=== PATIENT | female | born 1970 | race Caucasian/White ===

== ENCOUNTER → 2017-02-02 | Outpatient (CLI) | payer OTHER ==
--- NOTE | 2017-02-02 11:26 | XR ---
EXAM TYPE: LUMBAR SPINE X RAY SERIES COMPARISON: NONE HISTORY: Pain TECHNIQUE: 3 views are submitted. FINDINGS: Alignment is anatomic. The pedicles are intact. The transverse processes are intact. There is no s pondylolysis or spondylolisthesis. Surgical clips in the gallbladder fossa. Hypertrophic changes at virtually all levels with multilevel mild degenerative disc disease. There is a 2 mm retrolisthesis L2 on L3 of indeterminate age. No evidence of compression deformity. Facet arthropathy at L4-5 and L5-S1. IMPRESSION: 1. Multilevel mild degenerative disc disease. If there is concern for disc herniation recommend MRI.
== END | disposition home or self-care (01) ==
LOC: RADXRMAIN 10:55
PROVIDERS: ATTEND Emergency Medicine
DX: M51.36 Other intervertebral disc degeneration, lumbar region (principal)
CPT/HCPCS: 72100

== ENCOUNTER → 2017-03-29 | Outpatient (CLI) | payer BC ==
--- NOTE | 2017-03-29 19:04 | US ---
EXAMINATION TYPE: US thyroid st tissue head/neck DATE OF EXAM: 03/29/2017 6:54 PM COMPARISON: Prior 2011 CLINICAL HISTORY: Miriam thyroiditis . Patient takes thyroid medication GLAND SIZE: Right Lobe: 3.8 x 1.3 x 1.1 cm Overall Parenchyma: heterogenous Left Lobe: 3.7 x 1.0 x 1.0 cm Overall Parenchyma: heterogeneous Isthmus Thickness: 0.3 cm NODULES RIGHT: # of nodules measured on right: 0 LEFT: # of nodules measured on left: 0 ISTHMUS: # of nodules measured in the isthmus: 0 Bilateral neck scanned, no evidence of lymphadenopathy. Very heterogeneous gland bilaterally IMPRESSION: Negative exam. No focal thyroid abnormality seen.
== END | disposition home or self-care (01) ==
LOC: RADUSMAIN 17:59
PROVIDERS: ATTEND Family Medicine
DX: E06.3 Autoimmune thyroiditis (principal)
CPT/HCPCS: 76536

== ENCOUNTER → 2019-04-26 | Outpatient (CLI) | payer BC | END | disposition home or self-care (01) | LOC: LABPAT 11:06 | PROVIDERS: ATTEND Anesthesiology | DX: Z01.812 Encounter for preprocedural laboratory examination (principal); Z01.818 Encounter for other preprocedural examination | CPT/HCPCS: 36415; 84132; 93005 ==

== ENCOUNTER 2019-04-30 07:54 | Day surgery (SDC) | payer BC ==
[2019-04-25 09:48] VITALS: BMI 45.3
[~2019-04-30 07:54] MED LIST: DEXAMETHASONE SOD PHOSPHATE 4 MG/ML 1 ML VIAL IV ONE; FAMOTIDINE 20 MG/2 ML VIAL IV ONE; HYDROmorphone 0.5 MG/0.5 ML SYRINGE IVP PRN; LACTATED RINGERS 1,000 ML IV SCH; LIDOCAINE 1% 20 ML VIAL (10MG/ML) FOR IV START INTRADERMA PRN; ONDANSETRON 4 MG/2 ML VIAL IVP ONE
[2019-04-30 08:47] LABS: Glucose,Whole Blood 101 mg/dL (75-99)
[2019-04-30] MEDS ORDERED: SUCCINYLCHOLINE CHLORIDE 100 MG/5 ML SYR IV ONE (09:38)
[2019-04-30] MEDS ORDERED: fentaNYL (PF) 50 MCG/ML 2 ML AMP ONE (09:38)
[2019-04-30] MEDS ORDERED: HYDROmorphone (PF) 1 MG/ML ONE (09:38)
[2019-04-30] MEDS ORDERED: ROCURONIUM BROMIDE 10 MG/ML 10 ML VIAL IV ONE (09:38)
[2019-04-30] MEDS ORDERED: GLYCOPYRROLATE 0.2 MG/ML 2 ML VIAL ONE (09:38)
[2019-04-30] MEDS ORDERED: PROPOFOL 10 MG/ML 20 ML VIAL IV ONE (09:38)
[2019-04-30] MEDS ORDERED: LIDOCAINE 1% INJ 10MG/ML (20 ML MDV) ONE (09:38)
[2019-04-30] MEDS ORDERED: DEXAMETHASONE SOD PHOS (MDV) 100 MG/10 ML VIAL ONE (09:38)
[2019-04-30] MEDS ORDERED: MIDAZOLAM 2 MG/2 ML VIAL ONE (09:38)
--- NOTE | 2019-04-30 10:39 | P.OP ---
Date of Procedure: 04/30/19 Preoperative Diagnosis: Chronic tonsillitis Postoperative Diagnosis: Same Procedure(s) Performed: Adenotonsillectomy Anesthesia: GLENN Surgeon: Erick Olguin Estimated Blood Loss (ml): 3 Pathology: other (Bilateral tonsils) Condition: stable Disposition: PACU Indications for Procedure: The 48-year-old white female who has recurrent/chronic tonsillitis as well as postnasal drainage Operative Findings: Tonsils +3 bilaterally with considerable scarring in the tonsillar fossa bilaterally the adenoids were mildly enlarged and therefore were vaporized with suction cautery Description of Procedure: The patient was brought in the operative suite and placed in a supine position. Patient underwent induction of general anesthesia with oral endotracheal intubation without difficulty. The patient was prepped and draped in usual aseptic fashion. The McIvor mouth gag was placed. Soft palate was palpated and no submucous cleft was noted. Red Saul catheters placed through the right nasal cavity and pulled through the oropharynx for soft palate retraction. Nasopharynx examined mirror exam the adenoids were vaporized with suction cautery. Hemostasis was noted to be good and the catheter was removed. The left tonsil was grasped with a curved Allis clamp and dissected from tonsillar fossa in a superior to inferior direction using both blunt and electrocautery dissection. Hemostasis was gained with suction cautery. Once hemostasis was obtained attention was turned to the right where the right tonsil was removed exactly as the left had been. Once this tonsils removed hemostasis was gained with suction cautery. Once hemostasis was obtained and remained good in both tonsillar fossa the patient was suctioned in oral gastric fashion and the McIvor mouth gag was removed. The patient was allowed to emerge from general anesthesia having tolerated procedure well was extubated in the operating suite and transferred to postop recovery area in satisfactory condition.
[2019-04-30] MEDS ORDERED: LACTATED RINGERS 1,000 ML IV ONE (10:40)
[2019-04-30] MEDS ORDERED: ONDANSETRON 4 MG/2 ML VIAL IVP ONE (11:01)
[2019-04-30 11:04] VITALS: TEMP 97.8
[2019-04-30] MEDS ORDERED: diphenhydrAMINE 50 MG/ML 1 ML VIAL IVP ONE (11:37)
[2019-04-30 11:56] VITALS: RESP 16
[2019-04-30 12:59] VITALS: BP 135/80; PULSE 99
== END 2019-04-30 13:22 | disposition home or self-care (01) ==
LOC: OR 07:54
PROVIDERS: ATTEND Otolaryngology
DX: J35.03 Chronic tonsillitis and adenoiditis (principal); J03.91 Acute recurrent tonsillitis, unspecified; I10 Essential (primary) hypertension; K21.9 Gastro-esophageal reflux disease without esophagitis; R60.0 Localized edema; E06.3 Autoimmune thyroiditis; Z79.890 Hormone replacement therapy; Z79.899 Other long term (current) drug therapy; Z79.2 Long term (current) use of antibiotics; Z90.49 Acquired absence of other specified parts of digestive tract; Z88.1 Allergy status to other antibiotic agents; Z82.61 Family history of arthritis; Z80.3 Family history of malignant neoplasm of breast; Z83.79 Family history of other diseases of the digestive system
CPT/HCPCS: 42821; 88304; 81025; J2250; J1200; J1100 ×2; J2405; J0690; J2001; J3010; J1170; J0330; J2704

== ENCOUNTER → 2020-07-21 | Outpatient (CLI) | payer BC | END | disposition home or self-care (01) | LOC: LABWHC1 10:34 | PROVIDERS: ATTEND Family Medicine | DX: Z20.828 Contact with and (suspected) exposure to other viral communicable diseases (principal) | CPT/HCPCS: U0003; C9803 ==

== ENCOUNTER → 2021-11-29 | Outpatient (CLI) | payer BC ==
--- NOTE | 2021-11-30 07:44 | US ---
EXAMINATION TYPE: US thyroid st tissue head/neck DATE OF EXAM: 11/29/2021 COMPARISON: US CLINICAL HISTORY: R22.0 Localized swelling, mass and lump. Patient stated has Miriam Thyroid disea se and takes Levothyroxine. GLAND SIZE: Right Lobe: 3.6 x 1.2 x 1.5 cm Overall Parenchyma: homogenous Left Lobe: 3.9 x 1.0 x 1.0 cm Overall Parenchyma: homogeneous Isthmus Thickness: 0.4 cm NODULES: no thyroid nodules are seen bilaterally Bilateral neck scanned: superior to right thyroid a lymph node is seen = 0.7 x 0.7 x 0.5cm. IMPRESSION: No distinct thyroid abnormality seen. Subcentimeter lymph node as noted above.
== END | disposition home or self-care (01) ==
LOC: RADUSWWP 15:39
PROVIDERS: ATTEND Family Medicine
DX: R22.0 Localized swelling, mass and lump, head (principal)
CPT/HCPCS: 76536

== ENCOUNTER → 2023-08-31 | Outpatient (CLI) | payer BC ==
--- NOTE | 2023-09-03 07:55 | US ---
EXAMINATION TYPE: US thyroid st tissue head/neck DATE OF EXAM: 08/31/2023 COMPARISON: 11/29/2021 CLINICAL INDICATION: Female, 53 years old with history of E06.3 AUTOIMMUNE THYROIDITIS; On thyroid me ds. GLAND SIZE: Right Lobe: 2.4 x 1.3 x 1.1 cm Overall Parenchyma: heterogenous Left Lobe: 3.5 x 1.3 x 1.0 cm Overall Parenchyma: heterogenous Isthmus Thickness: 0.3 cm NODULES RIGHT: # of nodules measured on right: 0 LEFT: # of nodules measured on left: 0 ISTHMUS: # of nodules measured in the isthmus: 0 Bilateral neck scanned. Right lateral prominent lymph node with short axis= 0.7 cm and cortical thic kness= 5.7 mm. IMPRESSION: 1. No suspicious thyroid nodules. 2. Probable lymph node right neck. 2017 ACR TI-RADS LEVEL: *Highest TI-RADS level nodule reported
--- NOTE | 2023-09-03 07:58 | XR ---
EXAMINATION TYPE: XR lumbar spine 2 or 3V DATE OF EXAM: 08/31/2023 COMPARISON: 02/02/2017 HISTORY: Sciatic nerve pain TECHNIQUE: 4 view lumbar spine FINDINGS: There are 5 lumbar-type vertebral bodies. Pedicles are intact. Mild disc space narrowing is present through the lumbar spine Vertebral body heights are preserved. IMPRESSION: 1. No acute osseous abnormality
--- NOTE | 2023-09-03 07:59 | XR ---
EXAMINATION TYPE: XR Hip Bilateral Complete DATE OF EXAM: 08/31/2023 COMPARISON: None HISTORY: Low back pain, bilateral hip pain TECHNIQUE: Two-view bilateral hips FINDINGS: Femoral heads articulate with the acetabulum. No acute fracture or dislocations are evident . IMPRESSION: 1. No acute osseous abnormalities bilateral hips
== END | disposition home or self-care (01) ==
LOC: RADUSWWP 15:43
PROVIDERS: ATTEND Family Medicine
DX: E06.3 Autoimmune thyroiditis (principal); M54.30 Sciatica, unspecified side; Z80.3 Family history of malignant neoplasm of breast
CPT/HCPCS: 72100; 73521; 76536